=== PATIENT | female | born 1945 ===

== ENCOUNTER 2016-11-29 08:08 | Emergency (ER) | payer OTHER ==
[2016-11-29 08:21] VITALS: BMI 24.4
[2016-11-29 08:29] VITALS: PULSE 89; RESP 18; TEMP 98.4; O2SAT 100
--- NOTE | 2016-11-29 08:41 | ED PDOC ---
HPI: Allergic Reaction Time Seen by Provider: 11/29/16 08:33 Chief Complaint (Nursing): Allergic Reaction Chief Complaint (Provider): Upper lip swelling History Per: Patient History/Exam Limitations: no limitations Onset/Duration Of Symptoms: Mins Current Symptoms Are (Timing): Still Present Associated Symptoms: Swelling Home/EMS Treatment: None Severity: Moderate Additional History Per: Family Additional Complaint(s): The pt is a 70 yo female, presents to the ED for evaluation of upper lip swelling since earlier today. Pt reports she is currently taking Amoxicillin and states she drank wine yesterday after which she took her medication and is unsure if her swelling is caused by that. She denies taking any other new medications or food. Denies SOB, chest pain. Currently offers no additional medical complaints. PMD: Erlin Anderson Past Medical History Reviewed: Historical Data, Nursing Documentation, Vital Signs Vital Signs: Last Vital Signs Temp 98.4 F 11/29/16 08:21 Pulse 89 11/29/16 08:21 Resp 18 11/29/16 08:21 BP Pulse Ox 100 11/29/16 08:21 - Medical History PMH: No Chronic Diseases - Surgical History Surgical History: No Surg Hx - Family History Family History: States: No Known Family Hx - Living Arrangements Living Arrangements: With Family - Home Medications Home Medications: Ambulatory Orders Medication Instructions Recorded DiphenhydrAMINE [Benadryl] 25 mg PO Q4H PRN #20 cap 11/29/16 Epinephrine [Epipen] 0.3 mg IJ ONCE PRN #1 auto.injct 11/29/16 Prednisone 50 mg PO DAILY #5 tablet 11/29/16 - Allergies Allergies/Adverse Reactions: Allergies Allergy/AdvReac Type Severity Reaction Status Date / Time No Known Allergies Allergy Verified 11/29/16 08:19 Review of Systems ROS Statement: Except As Marked, All Systems Reviewed And Found Negative ENT: Positive for: Other (upper lip swelling) Cardiovascular: Negative for: Chest Pain Respiratory: Negative for: Shortness of Breath Physical Exam - Reviewed Nursing Documentation Reviewed: Yes Vital Signs Reviewed: Yes - Physical Exam Appears: Positive for: Well, Non-toxic, No Acute Distress Head Exam: Positive for: ATRAUMATIC, NORMAL INSPECTION, NORMOCEPHALIC Skin: Positive for: Normal Color Eye Exam: Positive for: Normal appearance ENT: Positive for: Other (Swelling noted to upper lip) Neck: Positive for: Normal Cardiovascular/Chest: Positive for: Regular Rate, Rhythm Respiratory: Positive for: Normal Breath Sounds. Negative for: Respiratory Distress Neurologic/Psych: Positive for: Alert, Oriented - ECG O2 Sat by Pulse Oximetry: 100 Disposition - Clinical Impression Clinical Impression: Allergic reaction - Disposition Referrals: [facility] [Outside] [facility] [Outside] Disposition Time: 11:00 Condition: IMPROVED Additional Instructions: please follow up with your doctor. return to er with worsening symptoms or concerns. please discontinue the amoxicillin. Prescriptions: DiphenhydrAMINE [Benadryl] 25 mg PO Q4H PRN #20 cap PRN Reason: Allergy Symptoms Epinephrine [Epipen] 0.3 mg IJ ONCE PRN #1 auto.injct PRN Reason: Anaphylaxis Prednisone 50 mg PO DAILY #5 tablet Instructions: Allergies (ED) Print Language: CROATIAN Medical Decision Making Medical Decision Making: Time: 836 Impression: Upper lip swelling Plan: * Bendaryl 50 mg PO * Pepcid 20 mg PO * Prednisone 50 mg PO * Reassess Scribe Attestation: Documented by Maria Isabel Hyman acting as a scribe for Osmin Wills DO. Provider Attestation: All medical record entries made by the Scribe were at my direction and personally dictated by me. I have reviewed the chart and agree that the record accurately reflects my personal performance of the history, physical exam, medical decision making, and the department course for this patient. I have also personally directed, reviewed, and agree with the discharge instructions and disposition. 930: pt reassesed. swelling improved, nearly resolved. speaking full sentences , airway patent, no oropharaynx swelling. pt offered further obs, but requesting to be d/c. no stridor.
== END 2016-11-29 09:55 | disposition home or self-care (01) ==
LOC: H.ER 08:08
DX: T78.40XA Allergy, unspecified, initial encounter (principal)